=== PATIENT | male | born 1985 | race African-American/Black ===

== ENCOUNTER 2018-04-13 18:26 | Emergency (ER) | payer MEDICAID ==
[~2018-04-13] VITALS: Ht 182.9 cm; Wt 97.5 kg
[~2018-04-13 18:26] MED LIST: ADVAIR 250-501 EACH IH; ALBUTEROL SULF8.5 GM INH; ALBUTEROL2.5 MG/3 M HHN; ALBUTEROL2.5 MG/3 M IH; ALBUTEROL2.5 MG/3 M INH; AUGMENTIN 875-1 EAC1 ORAL; AZITHROMYCIN250 MG ORAL; FLOVENT2 PUFF2 INH; IBUPROFEN600 MG ORAL; MECLIZINE HCL25 MG ORAL; NORCO 5-325 TA1 EACH ORAL; PREDNISONE1 MG PO; PREDNISONE20 MG ORAL; PREDNISONE5 MG PO; PREDNISONE50 MG ORAL; PREDNISONE50 MG PO; PROAIR HFA8.5 GM INH; ROBAXIN-750750 MG PO; ZYRTEC10 MG ORAL
[2018-04-13] MEDS ORDERED: Lidocaine 1% MPF 10mg/ml 5ml INJ ONE (18:45)
[2018-04-13] MEDS ORDERED: Phenazopyridine 200mg tab ORAL ONE (18:45)
[2018-04-13 18:47] VITALS: BP 141/87
[2018-04-13] MEDS ORDERED: Azithromycin 250mg tab ORAL ONE (19:00)
--- NOTE | 2018-04-13 19:00 | Emergency Room Report ---
History of Present Illness General Chief Complaint: Male Urogenital Problems Source: Patient, Medical Record Present Illness HPI 33-year-old male presents to the emergency department complaining of penile discharge 2 days. Patient reports recent unprotected intercourse he also reports dysuria. He denies swollen tender lymph nodes, external lesions in the genital area, rashes, joint pain, fevers, chills, testicular pain or swelling. Denies abdominal pain. Allergies: Coded Allergies: No Known Allergies (Verified Allergy, Unknown, 01/08/08) Patient History Past Medical History: see triage record, asthma Past Surgical History: none Pertinent Family History: none Reviewed Nursing Documentation: PMH: Agreed; PSxH: Agreed Nursing Documentation-PMH Past Medical History: No History, Except For Hx Cardiac Problems: No Hx Hypertension: No Hx Pacemaker: No Hx Asthma: Yes Hx COPD: No Hx Diabetes: No Hx Cancer: No Hx Gastrointestinal Problems: No Hx Dialysis: No Hx Neurological Problems: No Hx Cerebrovascular Accident: No Hx Seizures: No Review of Systems All Other Systems: negative except mentioned in HPI Physical Exam Vital Signs Date Time Temp Pulse Resp B/P (MAP) Pulse Ox O2 Delivery O2 Flow Rate FiO2 04/13/18 18:32 97.9 98 18 141/87 97 Room Air 97.9 Sp02 EP Interpretation: reviewed, normal General Appearance: no apparent distress, alert, GCS 15, non-toxic Head: normocephalic, atraumatic ENT: hearing grossly normal, normal voice Neck: full range of motion Respiratory: lungs clear, normal breath sounds, speaking full sentences Cardiovascular #1: regular rate, rhythm Gastrointestinal: non tender, soft Genitourinary: scrotum normal, other - Discharge visible, negative phren's sign , no rashes/lesions, no LAD. Musculoskeletal: back normal, gait/station normal, normal range of motion, non- tender Neurologic: alert, oriented x3, responsive, motor strength/tone normal, sensory intact, speech normal, grossly normal Psychiatric: judgement/insight normal Skin: normal color, no rash, warm/dry, well hydrated Lymphatic: no adenopathy Medical Decision Making PA Attestation Dr. garcia is my supervising Physician whom patient management has been discussed with. Diagnostic Impression: Primary Impression: Urethritis, unspecified ER Course 33-year-old male presents to the emergency department complaining of penile discharge 2 days. Patient reports recent unprotected intercourse he also reports dysuria. He denies swollen tender lymph nodes, external lesions in the genital area, rashes, joint pain, fevers, chills, testicular pain or swelling. Denies abdominal pain. Ddx considered but are not limited to UTi , Urethritis, LGV, STI, Stone, Cystitis, prostatitis Nurse Research for PE was: Vital signs: are WNL, pt. is afebrile H&PE are most consistent with Urethritis, Discharge visible, negative phren's sign, no rashes/lesions, no LAD. Will treat prophylactically due to being symptomatic. ORDERS: - None required. ED INTERVENTIONS: -250mg Rocephin IM -1 gram Azithromycin DISCHARGE: At this time pt. is stable for d/c to home. Will provide printed patient care instructions, and any necessary prescriptions. Care plan and follow up instructions have been discussed with the patient prior to discharge. Last Vital Signs Date Time Temp Pulse Resp B/P (MAP) Pulse Ox O2 Delivery O2 Flow Rate FiO2 04/13/18 18:47 97.9 75 18 141/87 97 Room Air 97.9 Disposition: HOME, SELF-CARE Condition: Stable Patient Instructions: Urethritis, Adult Additional Instructions: Take medications as directed. All partners must be treated, Treatment does not create protection from becoming re-infected. Follow up with a Primary Care Provider in 3-5 days, even if your symptoms have resolved. --Please review list of primary care clinics, if you do not already have a primary care provider Return sooner to ED if new symptoms occur, or current symptoms become worse. - Please note that this Emergency Department Report was dictated using ScanCafesenior care specialist technology software, occasionally this can lead to erroneous entry secondary to interpretation by the dictation equipment. Romana Cruz April 13, 2018 19:00
[2018-04-13 19:08] VITALS: BP 141/87
== END 2018-04-13 19:08 | disposition home or self-care (01) ==
LOC: EMR 18:45
DX: N34.2 Other urethritis (principal); J45.909 Unspecified asthma, uncomplicated
CPT/HCPCS: 96372; 99283; J0696; Q0144

== ENCOUNTER 2018-08-03 00:33 | Emergency (ER) | payer MEDICAID ==
[~2018-08-03] VITALS: Ht 182.9 cm; Wt 90.7 kg
[2018-08-03 01:00] VITALS: BP 129/84
[2018-08-03] MEDS ORDERED: Albuterol/Ipratropium 3ml neb HHN ONE (01:00)
[2018-08-03] MEDS ORDERED: ALBUTEROL SULF8.5 GM INH (01:02)
[2018-08-03] MEDS ORDERED: CLARITIN10 M1 ORAL (01:02)
[2018-08-03 01:23] VITALS: BP 129/84
--- NOTE | 2018-08-03 05:03 | Emergency Room Report ---
History of Present Illness General Chief Complaint: Asthma Present Illness HPI Patient 33-year-old male presented after increased cough and difficulty breathing. Patient prior history of asthma. He states he takes medications intermittently. He does not recently been hospitalized. He denies any episodes of intubation. The patient had gradual worsening nasal congestion associated with nonproductive cough. Patient denied fever. He denies any leg pain or swelling. Allergies: Coded Allergies: No Known Allergies (Verified Allergy, Unknown, 01/08/08) Patient History Past Medical History: see triage record Reviewed Nursing Documentation: PMH: Agreed; PSxH: Agreed Nursing Documentation-PMH Hx Cardiac Problems: No Hx Hypertension: No Hx Pacemaker: No Hx Asthma: Yes Hx COPD: No Hx Diabetes: No Hx Cancer: No Hx Gastrointestinal Problems: No Hx Dialysis: No Hx Neurological Problems: No Hx Cerebrovascular Accident: No Hx Seizures: No Review of Systems All Other Systems: negative except mentioned in HPI Physical Exam Vital Signs Date Time Temp Pulse Resp B/P (MAP) Pulse Ox O2 Delivery O2 Flow Rate FiO2 08/03/18 00:53 98.1 71 18 129/84 94 Room Air 98.1 08/03/18 01:00 21 Sp02 EP Interpretation: reviewed, normal General Appearance: normal inspection, well appearing, no apparent distress, alert, GCS 15 Head: atraumatic ENT: normal ENT inspection, hearing grossly normal, normal voice Neck: normal inspection, full range of motion, supple, no bony tend Respiratory: normal inspection, lungs clear, normal breath sounds, no respiratory distress, no retraction, wheezing Cardiovascular #1: regular rate, rhythm, no edema Gastrointestinal: normal inspection, normal bowel sounds, non tender, soft, no guarding, no hernia Genitourinary: no CVA tenderness Musculoskeletal: normal inspection, back normal, normal range of motion Neurologic: normal inspection, alert, oriented x3, responsive, fagoting machine operator III-XII nml as tested, speech normal Psychiatric: normal inspection, judgement/insight normal, mood/affect normal Skin: normal inspection, normal color, no rash Medical Decision Making Diagnostic Impression: Primary Impression: Asthma Additional Impression: Upper respiratory infection ER Course Patient presented for cough. Differential diagnosis included but was not limited to bronchitis, pneumonia, pulmonary embolism, pericarditis, asthma, foreign body. The patient presented to have an exacerbation of his asthma. The patient was noted to be in no acute distress. He is given prescription for albuterol as well as Claritin. The patient does not appear to require steroids at this time.The patient is advised to follow up with primary care doctor in 2 days. Patient is advised to return if any worsening condition or if any changes in status that are concerning. This report is dictated with IM5 oracle database architect software which may occasionally lead to discrepancies related to use of this software. Last Vital Signs Date Time Temp Pulse Resp B/P (MAP) Pulse Ox O2 Delivery O2 Flow Rate FiO2 08/03/18 01:23 98.1 20 129/84 99 Room Air 21 98.1 08/03/18 01:08 74 Status: improved Disposition: HOME, SELF-CARE Condition: Improved Scripts Loratadine (CLARITIN) 10 Mg Tab.rapdis 10 MG ORAL DAILY, #20 TAB Prov: Trev Viera MD 08/03/18 Albuterol Sulfate* (ALBUTEROL SULFATE MDI*) 8.5 Gm Hfa.aer.ad 2 PUFF INH Q4H PRN for cough/wheezing, #1 EA 0 Refills Prov: Trev Viera MD 08/03/18 Referrals: [facility],REFERRING (PCP) Patient Instructions: Asthma, Adult Trev Viera MD Aug 03, 2018 05:03
== END 2018-08-03 01:20 | disposition home or self-care (01) ==
LOC: EMR 01:08
DX: J45.909 Unspecified asthma, uncomplicated (principal); J06.9 Acute upper respiratory infection, unspecified
CPT/HCPCS: 94640; 94664; 99284; J7620

== ENCOUNTER 2019-08-28 00:54 | Emergency (ER) | payer MEDICAID ==
[~2019-08-28] VITALS: Ht 182.9 cm; Wt 97.5 kg
[~2019-08-28 00:54] MED LIST changes: +CLARITIN10 M1 ORAL
[2019-08-28] MEDS ORDERED: ALBUTEROL SULF8.5 GM INH (01:13)
[2019-08-28] MEDS ORDERED: CLARITIN10 MG ORAL (01:13)
[2019-08-28] MEDS ORDERED: PREDNISONE20 MG ORAL (01:13)
--- NOTE | 2019-08-28 01:13 | Emergency Room Report ---
History of Present Illness General Chief Complaint: Asthma Source: Patient Present Illness HPI Is a 34-year-old male with a history of asthma. He has not had to use his inhaler for a long time. He is out of his inhaler for a while now. He presents with chief complaint of wheezing shortness of breath. Onset for last 2 days. Triggered by seasonal allergies. No nausea no vomiting. No fever chills. With with exertion. Better with rest. Never had been intubated before. No recent steroid use. Allergies: Coded Allergies: No Known Allergies (Verified Allergy, Unknown, 01/08/08) Patient History Past Medical History: see triage record, old chart reviewed, asthma Past Surgical History: none Pertinent Family History: none Social History: Denies: smoking Immunizations: other Reviewed Nursing Documentation: PMH: Agreed; PSxH: Agreed Nursing Documentation-PMH Past Medical History: No History, Except For Hx Cardiac Problems: No Hx Hypertension: No Hx Pacemaker: No Hx Asthma: Yes Hx COPD: No Hx Diabetes: No Hx Cancer: No Hx Gastrointestinal Problems: No Hx Dialysis: No Hx Neurological Problems: No Hx Cerebrovascular Accident: No Hx Seizures: No Review of Systems Eye: Denies: eye pain, blurred vision ENT: Denies: ear pain, nose congestion, throat swelling Respiratory: Reports: cough, shortness of breath, wheezing Cardiovascular: Denies: chest pain, palpitations Gastrointestinal: Denies: abdominal pain, diarrhea, nausea, vomiting Musculoskeletal: Denies: back pain, joint pain Skin: Denies: rash Neurological: Denies: headache, numbness Endocrine: Denies: increased thirst, increased urine Hematologic/Lymphatic: Denies: easy bruising All Other Systems: negative except mentioned in HPI Physical Exam Vital Signs Date Time Temp Pulse Resp B/P (MAP) Pulse Ox O2 Delivery O2 Flow Rate FiO2 08/28/19 00:55 97.7 72 16 133/90 (104) 94 Room Air vitals normal Sp02 EP Interpretation: reviewed, normal General Appearance: well appearing, no apparent distress, alert Head: normocephalic, atraumatic Eyes: bilateral eye PERRL, bilateral eye EOMI ENT: hearing grossly normal, normal pharynx Neck: full range of motion, supple, no meningismus Respiratory: chest non-tender, decreased breath sounds, accessory muscle use, wheezing Cardiovascular #1: regular rate, rhythm, no murmur Gastrointestinal: normal bowel sounds, non tender, no mass, no organomegaly, no bruit, non-distended Musculoskeletal: back normal, gait/station normal, normal range of motion Psychiatric: mood/affect normal Medical Decision Making Diagnostic Impression: Primary Impression: Asthma attack Qualified Codes: J45.21 - Mild intermittent asthma with (acute) exacerbation ER Course Patient presents with asthma exacerbation. No evidence of any sepsis, pneumonia , ACS or PE to name a few. Better after breathing treatment. Will discharge home. Last Vital Signs Date Time Temp Pulse Resp B/P (MAP) Pulse Ox O2 Delivery O2 Flow Rate FiO2 08/28/19 00:55 97.7 72 16 133/90 (104) 94 Room Air Status: improved Disposition: HOME, SELF-CARE Condition: Stable Scripts Loratadine (CLARITIN) 10 Mg Tablet 10 MG ORAL DAILY, #30 TAB Prov: Mason Jacobo MD 08/28/19 Prednisone* (PREDNISONE*) 20 Mg Tablet 40 MG ORAL DAILY, #8 TAB Prov: Mason Jacobo MD 08/28/19 Albuterol Sulfate* (ALBUTEROL SULFATE MDI*) 8.5 Gm Hfa.aer.ad 2 PUFF INH Q4H PRN for cough/wheezing, #1 EA 0 Refills Prov: Mason Jacobo MD 08/28/19 Patient Instructions: Asthma, Adult Additional Instructions: Follow-up with your doctor in 7 days. Return if symptoms worsen. Mason Jacobo MD Aug 28, 2019 01:13
[2019-08-28] MEDS ORDERED: Albuterol ud Inhalation HHN ONE (01:15)
[2019-08-28] MEDS ORDERED: Ipratropium 0.02% Inh Soln 2.5ml UD HHN ONE (01:15)
--- NOTE | 2019-08-28 01:15 | NUR ---
ED Nurse Note: Walk-in patient with complaints of asthma x 2 days, without medication. ao4. nad. vss. significant other at bedside
[2019-08-28 01:16] VITALS: BP 133/90
--- NOTE | 2019-08-28 01:17 | NUR ---
ED Nurse Note: medicated; tolerated well. rt at bedside for breathing tx
[2019-08-28 01:46] VITALS: BP 133/90
--- NOTE | 2019-08-28 01:46 | NUR ---
ER DISCHARGE NOTE: Patient is cleared to be discharged per ERMD, pt is aox4, on room air, with stable vital signs. accompanied by significant other. pt was given dc and prescription instructions, pt was able to verbalize understanding, pt id band removed. pt is able to ambulate with steady gait. pt took all belongings.
== END 2019-08-28 01:47 | disposition home or self-care (01) ==
LOC: EMR 01:16
DX: J45.21 Mild intermittent asthma with (acute) exacerbation (principal); Z79.51 Long term (current) use of inhaled steroids
CPT/HCPCS: 94640; 94664; J7512; Z7502; 99284

== ENCOUNTER 2020-04-21 12:34 | Emergency (ER) | payer MEDICAID ==
[~2020-04-21] VITALS: Ht 185.4 cm; Wt 99.8 kg
[~2020-04-21 12:34] MED LIST changes: +CLARITIN10 MG ORAL; +MEDROL DOSEPAK4 MG ORAL
[2020-04-21 12:43] VITALS: BP 129/84
--- NOTE | 2020-04-21 12:43 | NUR ---
ED Nurse Note: Patient walked in to ED from home for medication refill. Stated that he ran out of his albuterol because he is using it mostly everyday. Pt also request for an inhaler. Denies SOB at this time.
[2020-04-21] MEDS ORDERED: ALBUTEROL2.5 MG/3 M HHN (12:49)
[2020-04-21] MEDS ORDERED: VENTOLIN HFA18 GM INH (12:49)
[2020-04-21 12:52] VITALS: BP 129/84
--- NOTE | 2020-04-21 12:52 | NUR ---
ED Nurse Note: Pt cleared by ERMD for discharge. DC instructions was given and explained to pt and verbalized understanding of teachings. Prescription sent electronically. All medical deviecs such as ID band removed. Pt is AAO x4, ambulatory and left with all personal belongings.
--- NOTE | 2020-04-21 12:53 | Emergency Room Report ---
History of Present Illness General Chief Complaint: Medication Refill Source: Patient Present Illness HPI Disclaimer: Please note that this report is being documented using Oak[employer] technology. This can lead to erroneous entry secondary to incorrect interpretation by the dictating instrument. HPI: 35-year-old male presents requesting medication refill. He has a history of asthma treated with albuterol inhaler and albuterol nebulizer treatments. He ran out of his albuterol nebulizer this morning and he ran out of with his MDI several weeks ago. He does not have a PMD. He has been getting his medications from emergency departments. Patient states because of the COVID-19 pandemic he has been unable to establish himself as a new patient had a primary care office but will continue to work on it. He denies any respiratory symptoms , cough, fever, chills or other changes in his health at that time. No other complaints reported. PMH: Asthma PSH: Reviewed Allergies: Reviewed Social Hx: Viewed Allergies: Coded Allergies: No Known Allergies (Verified Allergy, Unknown, 01/08/08) COVID-19 Screening Contact w/high risk pt: No Recent Travel to affected area: No Experienced COVID-19 symptoms?: No COVID-19 Testing performed WOODEN FRAME BUILDER: No Nursing Documentation-PMH Past Medical History: No History, Except For Hx Cardiac Problems: No Hx Hypertension: No Hx Pacemaker: No Hx Asthma: Yes Hx COPD: No Hx Diabetes: No Hx Cancer: No Hx Gastrointestinal Problems: No Hx Dialysis: No Hx Neurological Problems: No Hx Cerebrovascular Accident: No Hx Seizures: No Review of Systems All Other Systems: negative except mentioned in HPI Physical Exam Vital Signs Date Time Temp Pulse Resp B/P (MAP) Pulse Ox O2 Delivery O2 Flow Rate FiO2 04/21/20 12:38 99.1 87 20 129/84 (99) 96 Room Air General: Awake and alert, no acute distress HEENT: NC/AT. EOMI. Resp: Normal work of breathing, no stridor, no wheezing Skin: Intact. No abrasions, laceration or rash over the exposed skin MSK: Normal tone and bulk. Moving all extremities. No obvious deformity. Neuro: Awake and alert. Mentating appropriately Medical Decision Making Diagnostic Impression: Primary Impression: Encounter for medication refill ER Course 35-year-old male with history of asthma presents requesting medication refills of his albuterol nebulizer and inhaler. No respiratory distress, no complaints of wheezing, shortness of breath or cough. He is well-appearing does not require emergent labs or imaging at this time. We will refill his medications however I discussed that the emergency department is not for refilling chronic medications and he will again be referred to primary care clinics. Instructed to return with new or worsening symptoms. Last Vital Signs Date Time Temp Pulse Resp B/P (MAP) Pulse Ox O2 Delivery O2 Flow Rate FiO2 04/21/20 12:43 99.1 87 20 129/84 96 Room Air Disposition: HOME, SELF-CARE Condition: Stable Scripts Albuterol Sulfate (VENTOLIN HFA) 18 Gm Hfa.aer.ad 1 PUFF INH EVERY 6 HOURS, #18 GM 0 Refills Prov: Finn Stein MD 04/21/20 Albuterol Sulfate* (ALBUTEROL SULFATE HHN*) 2.5 Mg/3 Ml Vial.neb 2.5 MG HHN Q4H PRN for Shortness of Breath, #25 VIAL Prov: Finn Stein MD 04/21/20 Referrals: [facility],REFERRING (PCP) [facility] Patient Instructions: Medicine Refill at the Emergency Department Additional Instructions: Follow-up with 1 of the doctors in your discharge paperwork to establish yourself as a new patient and further follow-up of your chronic asthma. Return to the emergency department any new or worsening symptoms. Finn Stein MD Apr 21, 2020 12:52
== END 2020-04-21 12:52 | disposition home or self-care (01) ==
LOC: EMR 12:49
DX: Z76.0 Encounter for issue of repeat prescription (principal)
CPT/HCPCS: 99282

== ENCOUNTER 2020-09-29 10:54 | Emergency (ER) | payer MEDICAID ==
[~2020-09-29] VITALS: Ht 182.9 cm; Wt 97.5 kg
[~2020-09-29 10:54] MED LIST changes: +VENTOLIN HFA18 GM INH
--- NOTE | 2020-09-29 11:00 | NUR ---
ED Nurse Note: Pt walked into ED for med refill of albuterol. Pt is alert and orientedx4, ambulatory. He denies any nausea, vomiting, diarrhea, SOB, coughing, chills, bodyaches.
[2020-09-29 11:09] VITALS: BP 132/74
[2020-09-29] MEDS ORDERED: VENTOLIN HFA18 GM INH (11:18)
[2020-09-29 11:23] VITALS: BP 120/73
--- NOTE | 2020-09-29 11:23 | NUR ---
ER DISCHARGE NOTE: Patient is cleared to be discharged per ERMD, pt is aox4, on room air, with stable vital signs. pt was given dc and prescription instructions, pt was able to verbalize understanding, pt id band removed. pt is able to ambulate with steady gait. pt took all belongings. Pt educated regarding albuterol.
--- NOTE | 2020-09-30 08:51 | Emergency Room Report ---
History of Present Illness General Chief Complaint: Medication Refill Source: Patient Present Illness HPI 35-year-old male presents for medication refill. History of asthma. States he uses an inhaler. He ran out a few days ago. Denies any wheezing or cough. No other aggravating or relieving factors. Denies any other associated symptoms Allergies: Coded Allergies: No Known Allergies (Verified Allergy, Unknown, 01/08/08) COVID-19 Screening Contact w/high risk pt: No Recent Travel to affected area: No Experienced COVID-19 symptoms?: No COVID-19 Testing performed HAND CULTIVATOR: No Patient History Past Medical History: asthma Past Surgical History: none Pertinent Family History: none Social History: Denies: smoking, alcohol use, drug use Immunizations: UTD Reviewed Nursing Documentation: PMH: Agreed; PSxH: Agreed Nursing Documentation-PMH Past Medical History: No History, Except For Hx Cardiac Problems: No Hx Hypertension: No Hx Pacemaker: No Hx Asthma: Yes Hx COPD: No Hx Diabetes: No Hx Cancer: No Hx Gastrointestinal Problems: No Hx Dialysis: No Hx Neurological Problems: No Hx Cerebrovascular Accident: No Hx Seizures: No Review of Systems All Other Systems: negative except mentioned in HPI Physical Exam Vital Signs Date Time Temp Pulse Resp B/P (MAP) Pulse Ox O2 Delivery O2 Flow Rate FiO2 09/29/20 10:55 96.6 75 15 136/79 (98) 100 Room Air Sp02 EP Interpretation: reviewed, normal General Appearance: no apparent distress, alert, GCS 15, non-toxic Head: normocephalic, atraumatic Eyes: bilateral eye normal inspection, bilateral eye PERRL ENT: hearing grossly normal, normal pharynx, no angioedema, normal voice Neck: full range of motion, supple/symm/no masses Respiratory: chest non-tender, lungs clear, normal breath sounds, speaking full sentences Cardiovascular #1: regular rate, rhythm, no edema Cardiovascular #2: 2+ carotid (R), 2+ carotid (L), 2+ radial (R), 2+ radial (L), 2+ dorsalis pedis (R), 2+ dorsalis pedis (L) Gastrointestinal: normal bowel sounds, non tender, soft, non-distended, no guarding, no rebound Rectal: deferred Genitourinary: normal inspection, no CVA tenderness Musculoskeletal: back normal, normal range of motion, gait/station normal, non- tender Neurologic: alert, motor strength/tone normal, oriented x3, sensory intact, responsive, speech normal Psychiatric: judgement/insight normal, memory normal, mood/affect normal, no suicidal/homicidal ideation Reflexes: 3+ bicep (R), 3+ bicep (L), 3+ tricep (R), 3+ tricep (L), 3+ knee (R), 3+ knee (L) Lymphatic: no adenopathy Medical Decision Making Diagnostic Impression: Primary Impression: Encounter for medication refill ER Course 35-year-old male presents to ED refill of his inhaler. h/o asthma hospital course: After initial history exam reveals male in no acute distress. Lungs clear. Vital stable. Will refill his inhaler. Safe for discharge close outpatient follow-up. I will provide PMD referrals Diagnosis-encounter for medication refill Stable and discharged to home with prescription for albuterol. Followup with PMD. Return to ED if symptoms recur or worsen Last Vital Signs Date Time Temp Pulse Resp B/P (MAP) Pulse Ox O2 Delivery O2 Flow Rate FiO2 09/29/20 11:23 96.6 82 17 120/73 99 Room Air Status: improved Disposition: HOME, SELF-CARE Condition: Stable Scripts Albuterol Sulfate (VENTOLIN HFA) 18 Gm Hfa.aer.ad 1 PUFF INH EVERY 6 HOURS, #18 GM 0 Refills Prov: Yair Garcia MD 09/29/20 Referrals: [facility],REFERRING (PCP) [facility] Patient Instructions: Medicine Refill at the Emergency Department Yair Garcia MD Sep 30, 2020 08:51
== END 2020-09-29 11:40 | disposition home or self-care (01) ==
LOC: EMR 11:33
DX: Z76.0 Encounter for issue of repeat prescription (principal); J45.909 Unspecified asthma, uncomplicated
CPT/HCPCS: 99282